=== PATIENT | female | born 1975 | race Caucasian/White ===

== ENCOUNTER 2017-01-07 16:38 | Emergency (ER) | payer SELFPAY ==
--- NOTE | 2017-01-07 16:51 | ED Physician Documentation ---
Animal Bite - HISTORIAN Historian: patient - HPI Chief Complaint: Animal Bite Onset: just prior to arrival Where: work Animal: dog Appearance of Animal: appeared well Animal's Immunization Status: UTD (according to district administrator) Observation/ Capture of Animal: animal is known (district administrator was passing through, stated that the dog is up-to-date on shot) Context of Attack: "unprovoked" attack, entered animals domain Severity of Injury: bitten Location of Injury: face Associated Symptoms: none Further Comments: yes - ROS CONST: no problems CVS/RESP: none NEURO: none - PAST HX Past History: COPD, other (degenerative disc disease, chronic low back pain, HTN ) Allergies/Adverse Reactions: Allergies Allergy/AdvReac Type Severity Reaction Status Date / Time isoproterenol HCl Allergy Unknown Verified 01/07/17 16:54 [From Isuprel] metaxalone [From Skelaxin] Allergy Hives Verified 01/07/17 16:54 Home Medications: Ambulatory Orders Medication Instructions Recorded Diclofenac Sodium [Voltaren] 50 mg PO BID PRN #20 tablet. 01/07/17 - SOCIAL HX Smoking History: less than 1 pack/day (1/2 ppd) Alcohol Use: none Drug Use: none - FAMILY HX Family History: no significant history - VITAL SIGNS Vital Signs: Vital Signs Temp Pulse Resp BP Pulse Ox 98.7 F 85 18 111/78 99 01/07/17 17:38 01/07/17 17:38 01/07/17 17:38 01/07/17 17:38 01/07/17 17:38 - REVIEWED ASSESSMENTS Nursing Assessment Reviewed: Yes Vitals Reviewed: Yes Procedures Wound Location: head Wound Length: 1.8 Wound's Depth, Shape: superficial, linear Wound Explored: no foreign body removed Betadine Prep?: No (hexadyne) Anesthesia: 1% Lidocaine Volume of Anesthetic: 2 cc Wound Debrided: none Wound Repaired With: sutures Suture Size/Type: 6:0 Number of Sutures: 4 Layer Closure?: No Sterile Dressing Applied?: Yes Splint Applied?: No Sling Applied?: No ED Results Lab/Radiology - Orders Orders: ED Orders Category Date Time Status Diph,Pertuss(Acell),Tet Vac/Pf [Adacel] Med 01/07/17 17:00 Discontinued 0.5 ml IM 1T Lidocaine 1% 5ml(IM or SUTURE) [Xylocaine] Med 01/07/17 16:57 Discontinued 50 mg IJ NOW ONE Animal Bite Physical Exam - Physical Exam General Appearance: no acute distress, anxious Skin: other (1.8cm right cheek laceration, 0.5 cm laceration to corner of left mouth repaired with one 6-0 nylon suture) Neuro/Vascular/Tendon: no vascular compromise, oriented x3, sensation nml, ROM nml Psych: mood/affect nml HEENT: other (laceration) Resp/CVS: chest non-tender, breath sounds nml, heart sounds nml, no resp. distress Discharge Clincal Impression: Facial laceration Qualifiers: Encounter type: initial encounter Qualified Code(s): S01.81XA - Laceration without foreign body of other part of head, initial encounter Prescriptions: Diclofenac Sodium [Voltaren] 50 mg PO BID PRN #20 tablet.dr FELIX Reason: Pain Referrals: Donnie Tavarez MD [Primary Care Provider] - 2 Days Additional Instructions: Keep lacerations clean and dry. Watch for any signs of infection, have sutures removed in 5 days. Home Medications: Ambulatory Orders Diclofenac Sodium [Voltaren] 50 mg PO BID PRN #20 tablet. 01/07/17 Condition: Stable Disposition: 01 HOME, SELF-CARE Decision to Admit: NO Date of Decison to Admit: 01/07/17 Decision Time: 17:25
[2017-01-07] MEDS ORDERED: Lidocaine 1% 5ml(IM or SUTURE)(PAIN CLINIC) IJ ONE (16:57)
[2017-01-07] MEDS ORDERED: DIPH,PERTUSS(ACELL),TET VAC/PF 0.5 ML DISP.SYRIN IM SCH (17:00)
[2017-01-07 17:40] VITALS: BP 111/78
== END 2017-01-07 17:38 | disposition home or self-care (01) ==
LOC: ED 16:38
DX: S01.81XA Laceration without foreign body of other part of head, initial encounter (principal); X58.XXXA Exposure to other specified factors, initial encounter; Y93.9 Activity, unspecified; Y99.9 Unspecified external cause status
CPT/HCPCS: 12001; 90471; 90715; 99283